=== PATIENT | female | born 1985 ===

== ENCOUNTER → 2017-07-28 | Outpatient (CLI) | payer OTHER | END | disposition home or self-care (01) | LOC: PPH VACUNA 09:02 | DX: Z23 Encounter for immunization (principal) ==

== ENCOUNTER 2017-10-16 14:30 | Inpatient (IN) | payer OTHER ==
[~2017-10-16] VITALS: Ht 165.1 cm; Wt 86.2 kg
[2017-10-28] MEDS ORDERED: PRENATAL PLUS1 EAC1 PO (06:31)
== END 2017-10-30 13:24 | disposition home or self-care (01) | DRG 766 ==
LOC: O/R 10-28 06:00 → OB/GYN 10-28 10:30
PROVIDERS: Obstetrics & Gynecology
PROC: 0UB00ZZ Excision of Right Ovary, Open Approach (ICD-10-PCS; 2017-10-28)
PROC: 10907ZC Drainage of Amniotic Fluid, Therapeutic from Products of Conception, Via Natural or Artificial Opening (ICD-10-PCS; 2017-10-28)
PROC: 4A1HXCZ Monitoring of Products of Conception, Cardiac Rate, External Approach (ICD-10-PCS; 2017-10-28)
PROC: 10D00Z1 Extraction of Products of Conception, Low, Open Approach (ICD-10-PCS; principal; 2017-10-28 10:30)
DX: O34.83 Maternal care for other abnormalities of pelvic organs, third trimester (principal); N83.291 Other ovarian cyst, right side; Z3A.39 39 weeks gestation of pregnancy; Z37.0 Single live birth

== ENCOUNTER 2020-07-18 08:30 | Inpatient (IN) | payer OTHER ==
[~2020-07-18] VITALS: Ht 165.1 cm; Wt 3.2 kg
[~2020-07-18 08:30] MED LIST: PRENATAL PLUS1 EAC1 PO
[2020-07-18] MEDS ORDERED: PRENATAL PO (11:12)
[2020-07-25] MEDS ORDERED: PRENATAL + DHA1 EAC1 PO (10:58)
== END 2020-07-27 10:23 | DRG 788 ==
LOC: OB/GYN 07-25 08:30 → O/R 07-25 09:21 → SURG-SUITE 07-25 09:21
PROVIDERS: ADMIT Obstetrics & Gynecology; ATTEND Obstetrics & Gynecology
PROC: 10D00Z1 Extraction of Products of Conception, Low, Open Approach (ICD-10-PCS; principal; 2020-07-25 13:30)
DX: O82 Encounter for cesarean delivery without indication (principal); O65.5 Obstructed labor due to abnormality of maternal pelvic organs; O34.211 Maternal care for low transverse scar from previous cesarean delivery; Z3A.39 39 weeks gestation of pregnancy; Z37.0 Single live birth